=== PATIENT | male | born 1965 | race Caucasian/White ===

== ENCOUNTER 2025-03-11 11:08 | Outpatient (AMB) | payer OTHER, SELFPAY ==
--- NOTE | 2025-03-11 11:10 | A.OFFVIS_ITS ---
Vital Signs 03/11/25 11:14 03/11/25 11:16 Height 5 ft 6 in Weight 274 lb 6 oz BMI 44.3 BP 183/100 H 196/99 H Blood Pressure Location Lt brachial Rt radial Position Sitting Sitting Pulse 100 Pulse Source Pulse Oximeter Pulse Oximetry (%) 98 Oxygen Delivery Method Room Air Comment bp recheck Intake Visit Reasons: LEFT SIDED LOW BACK PAIN Intake Note: Pain today 710 Allergies No Known Allergies Allergy (Verified 03/11/25 11:14) HPI Comments Details: The patient is a 59-year-old male presenting with chronic back pain. The patient reports a history of multiple surgeries, including a total knee replacement and bilateral shoulder replacements. He also has a history of spinal surgery involving plates and screws, and a neck fusion performed approximately three years ago. The back pain has been persistent and is described as worsening over time, with a current severity of 7 to 8 out of 10. The pain is exacerbated by movements, prolonged sitting, walking and cold weather, and is present throughout the day. The patient finds some relief with medications such as oxycodone and heat application. The pain is described as gross ache and stabbing, particularly when sitting or attempting to stand after sitting for prolonged periods. The pain radiates from the lower back to the left knee but does not extend below the knee. Denies any recent trauma, injury or falls. Patient plans to start physical therapy soon at [facility]. The patient has a BMI of 44 and has been advised on weight management, including a potential referral to a general foundry worker. He reports consuming beer and marijuana, which he purchases from a medical dispensary. - Onset and Timing: Persistent pain worsening over time, present throughout the day - Quality and Character: Described as gross and stabbing, particularly when sitting or standing, prolonged walking - Primary Location: Lower back, bilateral knees L>R, left shoulder, my body hurts - Radiation: Radiates to the left knee, not extending below the knee - Exacerbating Factors: Movement, cold, prolonged sitting or walking - Relieving Factors: Medications (oxycodone), heat application - Interference: Affects ability to sit or stand, walking for prolonged periods - Affect: Pain impacts daily activities and mood, causing frustration - Analgesia: Current pain level is 7 to 8/10, managed with oxycodone and heat - Adverse Effects: No specific adverse effects from medications reported - Activities of Daily Living: Pain interferes with cleaning, cooking, and other household activities - Aberrant Drug Related Behaviors: No aberrant behaviors reported, patient stopped oxycodone use in September [facility] Medical History (Updated 03/14/25 @ 20:06 by OCHOA Reed) Chronic anemia Chronic combined systolic (congestive) and diastolic (congestive) heart failure Cervical radiculopathy Chronic pain of both shoulders Marijuana use Rotator cuff arthropathy of left shoulder Hyperlipidemia Acute left-sided low back pain Hypertension Cardiomyopathy Bipolar 1 disorder Bilateral chronic knee pain Benign prostatic hyperplasia with lower urinary tract symptoms Alcoholic liver disease Surgical History (Updated 03/14/25 @ 20:03 by OCHOA Reed) H/O shoulder surgery History of bilateral knee replacement Social History Alcohol intake: current Alcohol intake frequency: a few times a week Alcohol type: beer Patient Tobacco Use Status: Former Tobacco user Substance Use Type: Marijuana Review of Systems Const Details: - Musculoskeletal: Reports chronic back pain, radiating to left knee, exacerbated by movement and cold - Neurological: Denies numbness or tingling, bladder or bowel dysfunction or saddle anesthesia - Psychiatric: Reports frustration due to pain and challenges to obtain opioids - Gastrointestinal: Denies any specific symptoms All systems reviewed & are unremarkable except as noted in HPI and below Physical Exam Vital Signs: Last Vital Signs Pulse 100 03/11/25 11:14 BP 196/99 H 03/11/25 11:16 Pulse Ox 98 03/11/25 11:14 Oxygen Delivery Method Room Air 03/11/25 11:14 BMI result Body Mass Index 44.3 General: Appears afebrile. Morbidly obese. Alert and oriented. Mood and affect appropriate. Follows and participates in conversation appropriately. Respiratory effort is unlabored. No cough. Able to transition from sit to stand unassisted. Ambulates with bilaterally normal heel strike and toe off. General: Yes no CVA tenderness Back/Spine/Pelvis Other: Limited lumbar ROM due to pain. Lumbar flexion and extension reproduces moderate pain. No midline tenderness in cervical, thoracic or lumbar regions. Anoc-bi-vgdytbpy difficulty with getting up from sitting to standing position due to back and left knee pain. Demonstrates 5/5 right and 4/5 left due to pain strength of quadriceps bilaterally as well as flexion/dorsiflexion of bilateral feet against resistance. 2+ pedal pulses bilaterally. Straight leg rise with dorsiflexion negative bilaterally. +1 patellar and achilles reflexes bilaterally. Facet loading test positive bilaterally. Elmer?s, and Stinchfield tests are negative bilaterally. No groin pain with I/E hip rotations. Valsalva maneuver negative. Back: no CVA tenderness Cervical Spine: cervical muscular tenderness, Cervical spine scars present and No Cervical spine tenderness Thoracic/Lumbar Spine: thoracic and lumbar spine normal to inspection, No Thoracic/lumbar spine scar(s), Lasegue's sign negative, straight leg raise negative bilaterally, pain with thoraco-lumbar ROM, paraspinal muscle tenderness, thoraco-lumbar ROM limited, No thoracic spinal tenderness and No lumbar spinal tenderness Sacroiliac joints: bilaterally nontender Extrem General: Yes capillary refill normal, Yes no clubbing, cyanosis or edema and Yes no calf tenderness Left lower extremity: knee (well healed incision) Details: normal to inspection, tenderness Location: of the patella, of the medial joint line and of the lateral joint line and crepitus; no ecchymosis, no deformity and no unusual warmth Results Reviewed Results Reviewed: No imaging reports are available for review. Assessment & Plan Assessment & Plan (1) Morbid obesity with body mass index (BMI) of 45.0 to 49.9 in adult: Code(s): E66.01 - Morbid (severe) obesity due to excess calories; Z68.42 - Body mass index [BMI] 45.0-49.9, adult (2) Lumbosacral spondylosis: Code(s): M47.817 - Spondylosis without myelopathy or radiculopathy, lumbosacral region Category: Medical (3) Bilateral chronic knee pain: Code(s): M25.561 - Pain in right knee; M25.562 - Pain in left knee; G89.29 - Other chronic pain Category: Medical (4) Acute left-sided low back pain: Code(s): M54.50 - Low back pain, unspecified Category: Medical (5) Lumbar radiculopathy: Code(s): M54.16 - Radiculopathy, lumbar region Category: Medical Plan The plan for managing the patient's chronic back and knee pain includes initiating physical therapy for six to eight weeks to improve flexibility, ROM, core strength and mobility. Following the completion of physical therapy, an MRI may be considered to further evaluate the condition of the spine for radicular symptoms and axial low back pain due to arthritis. Medical release request sent to [facility] for most recent spine and joint imaging for review. Discussed interventional procedures for radicular and facet mediated low back pain and chronic knee pain with h/o total knee replacements such as diagnostic versus therapeutic injections, lumbar and genicular radiofrequency ablation, peripheral nerve stimulation or spinal cord stimulation. I have informed patient that we do not offer chronic opioid program at this time. Additionally, the patient has been advised on weight management strategies, including a referral to a Verification Rep, to address obesity and its impact on back pain. All questions and concerns have been answered and patient agreed with the treatment plan. Follow up after PT and sooner as needed. Patient was informed and verbally consented to the use of an ambient scribe for clinic note documentation during this visit. Orders: Referrals Medical Nutrition Therapy Referral E66.01 - Morbid (severe) obesity due to excess calories, G89.29 - Other chronic pain, M54.50 - Low back pain, unspecified, Z68.42 - Body mass index [BMI] 45.0-49.9, adult Coding Level of Care Code New Pt Level 4 (21565) Diagnoses Morbid obesity with body mass index (BMI) of 45.0 to 49.9 in adult E66.01; Z68.42 Lumbosacral spondylosis M47.817 Bilateral chronic knee pain M25.561; M25.562; G89.29 Acute left-sided low back pain M54.50 Lumbar radiculopathy M54.16
[2025-03-11 11:14] VITALS: BP 183/100; PULSE 100; O2SAT 98; BMI 44.3
[2025-03-11 11:16] VITALS: BP 196/99
--- OUTSIDE RECORDS SUMMARY | 2025-03-11 14:00 | XMS_ITS | Encounter Summary ---
Author Organization [facility] Address [address] [place] [address] Care Team Providers Care Chute Builder Name Role Phone Cristo Gonazles MD Primary Care Provider [phone] Encounter Details Date Type Department Care Team (Late Contact Info) Description 02/05/2025 Results Follow-Up Adult Medicine [address] [phone] Cristo Gonzales MD [address] [place] [address] Social History Tobacco Use Types Packs/Day Years Used Date Smoking Tobacco: Former Cigarettes Smokeless Tobacco: Never Alcohol Use Standard Drinks/Week Comments Yes 6 (1 standard drink = 0.6 oz pur e alcohol) Interpersonal Safety Answer Date Record ed Physical Abuse Unrecognized value 10/14/2024 Verbal Abuse Unrecognized value 10/14/2024 Sex and Gender Information Value Date Recorded Sex Assigned at Male 08/25/2024 11:15 AM EDT Legal Sex Male 4:31 PM EST Gender Identity Male 08/25/2024 11:15 AM EDT Sexual Orientation Straight 08/25/2024 11 :15 AM EDT documented as of this encounter Plan of Treatment Upcoming Encounters Date Type Department Care Team (Late st Contact Info) Description 04/14/2025 9:30 AM EST Office Visit Orthopedic Surgery - [place] [address] [facility] [address] [place] [address] Erik Tan MD [address] [facility] [address] [place] [address] 06/08/2025 11:15 AM EST Office Visit Adult Medicine [facility] [address] [place] [address] Cristo Gonzales MD [address] [place] [address] documented as of this encounter Visit Diagnoses Not on filedocumented in this encounter Care Teams Chute Builder Relationship Specialty Start Date End Date Cristo Gonzales MD [address] [place] [address] PCP - General Internal Medicine 09/22/21 documented as of this encounter
--- OUTSIDE RECORDS SUMMARY | 2025-03-11 14:00 | XMS_ITS | Clinical Summary ---
Author Organization [facility] [employer] [facility] Address [address] [facility] [place] [address] Phone Care Team Providers [employer] Head Cook Name Role Phone Cristo Gonzales MD Primary Care Provider [phone] Allergies No known active allergies Medications QUEtiapine (SEROquel) 50 mg tablet Take 1 Tab by mouth every 12 hours as needed for Other (anxiety). 04/13/20 20 Active cariprazine (Vraylar) 3 mg capsule TAKE 1 CAPSULE BY MOUTH AT BEDTIME 09/24/19 23 Active venlafaxine XR (EFFEXOR-XR) 150 mg 24 hr capsule Take 1 capsule by mouth daily. 07/13/19 22 Active traZODone (DESYREL) 100 mg tablet TAKE 1 TABLET BY MOUTH AT BEDTIME NEEDED FOR SLEEP 03/16/20 21 Active lamoTRIgine (LaMICtal) 200 mg tablet Take 200 mg by mouth daily. 06/10/19 21 Active QUEtiapine (SEROquel) 300 mg tablet Take 1 Tablet by mouth at bedtime. Active gabapentin (NEURONTIN) 600 mg tablet Take 1 Tab by mouth 3 times daily. 12/03/19 19 Active carvediloL (COREG) 3.125 mg tablet Take 2 tablets (6.25 mg total) by mouth 2 (two) times a day with meals. 10/07/19 25 Active aspirin 81 mg EC tablet Take 1 tablet (81 mg total) by mouth 2 (two) times a day. 56 tablet 10/16/19 25 Active folic acid (FOLVITE) 1 mg tablet Take 1 tablet by mouth once daily 90 tablet 1 11/03/19 25 Active furosemide (LASIX) 20 mg tablet Take 1 tablet by mouth once daily 90 tablet 1 11/03/19 25 Active atorvastatin (LIPITOR) 40 mg tablet Take 1 tablet by mouth once daily 90 tablet 1 12/31/19 25 Active tamsulosin (FLOMAX) 0.4 mg 24 hr capsule Take 1 capsule (0.4 mg total) by mouth 1 (one) time each day. at bedtime 90 each 1 01/07/20 25 Active lisinopril-hyd roCHLOROthiazi de (PRINZIDE,ZEST ORETIC) 20-12.5 mg per tablet Take 1 tablet by mouth 1 (one) time each day. 90 each 1 01/07/20 25 Active cyclobenzaprin e (FLEXERIL) 5 mg tabletIndicati ons:Acute left-sided low back pain with left-sided sciatica Take 1 tablet (5 mg total) by mouth at bedtime as needed for muscle spasms. 30 tablet 3 02/06/20 25 Active acetaminophen (Tylenol 8 Hour) 650 mg 8 hr tablet Take 1 tablet (650 mg total) by mouth every 8 (eight) hours if needed for mild pain. Do not crush, chew, or split. 90 tablet 2 02/06/20 25 Active predniSONE (DELTASONE) 20 mg tablet Take 2 tablets (40 mg total) by mouth See administration instructions for 3 days, THEN 1 tablet (20 mg total) See administration instructions for 4 days. 10 tablet 02/06/20 25 025 Active Problems Problem Noted Date Diagnosed Date Benign prostatic hyperplasia without lower urinary tract symptoms 11/01/2024 Bipolar 1 disorder (CMS/HCC V24, CMS/HCC V28) Periprosthetic fracture arou nd internal prosthetic left shoulder joint, initial encounter 10/13/2024 Pre-op exam 10/08/2024 Assessment & Plan (10/08/2024 3:32 PM EDT): No further cardiac testing indicated prior to planned orthopedic surgery. Orders: ECG 12 lead Periprosthetic fracture arou nd internal prosthetic left shoulder joint 09/14/2024 Morbid obesity with BMI of 4 0.0-44.9, adult ([facility] V24, [facility] V28) 03/30/2024 Coronary artery disease stat us post coronary stent insertion 11/07/2023 Overview (07/27/2024): - Cardiac catheterization 08/2023 showed proximal LAD 80% stenosis (bifurcation lesion) receiving a drug-eluting stent, D1 ostial 50% (IFR negative), left circumflex distal 50% (bifurcation lesion), and distal RCA mid subsection 60% stenosis (IFR negative) - GDMT for 6 months following PCI (02/2024) Assessment & Plan (10/08/2024 3:32 PM EDT): No recurrent anginal symptoms. Continue ongoing medical therapy for his CAD including aspirin, beta-karoline, statin. Brilinta previously discontinued; now >12 months s/p PCI. 12 lead ECG today remains normal. Assessment & Plan (07/27/2024 3:17 PM EDT): The patient does not have any anginal symptoms to his current MET workload. Continue ongoing medical therapy for his CAD including aspirin, beta-karoline, statin. He will notify me of any changes in his current condition Marijuana use 08/09/2023 Overview (03/30/2024): Last Assessment & Plan: Cessation advised. Cardiomyopathy ([facility] V24, [facility] V28) 2023 Overview (07/27/2024): - Echocardiogram in workup of questionable syncopal episodes on 01/30/2023 showed normal wall thickness, normal LV cavity size, mild, global LV systolic dysfunction with ejection fraction 45 to 50%, no hemodynamically significant valve disease, mild left atrial enlargement, grossly normal RV size and systolic function - Updated echo following revascularization in 02/21/2024 shows normalization of his LVEF 55 to 60%, normal LV chamber size, mild concentric LVH, no wall motion abnormalities, no hemodynamically significant valve disease Assessment & Plan (10/08/2024 3:32 PM EDT): Normalization of LVEF after coronary revascularizaion. Remains on low dose diuretic which he is doing well with. Continue medical therapy including beta karoline and ACEi Assessment & Plan (07/27/2024 3:17 PM EDT): The patient's LVEF has improved status post revascularization. He feels well and appears euvolemic on exam today. Continue medical therapy with beta-karoline and LANDON inhibitor. He does remain on diuretic and appears euvolemic. Chronic systolic congestive heart failure ([facility] V24, [facility] V28) 04/01/2023 Rotator cuff arthropathy, left 04/01/2023 Chronic anemia 11/06/2022 Alcoholic liver disease ([facility] V24) 11/06/2022 Ventricular trigeminy 10/23/2022 Overview (03/30/2024): Last Assessment & Plan: Likely an incidental issue. Patient is asymptomatic. Continue low-dose carvedilol. Cervical radiculopathy at C5 06/01/2021 Overview (03/30/2024): Last Assessment & Plan: Patient is almost 1 month s/p C4-5 anterior discectomy and fusion. He states the surgery has helped his preop symptoms, he notes his strength is returning. He states the muscles are atrophied and now he sees that he is building up muscle, strength. He is doing PT exercises. He still will have some posterior neck pain and occasionally use oxycodone, states he is out of meds. He has some residual voice hoarseness and occasional swallow issues, but feels it is getting better with time. He denies fever, sweats chills, recent wound drainage. He did relate that 2 days after surgery he had serosanguinous drainage x1. He is active and ambulating regularly, using a cane, has other chronic pain issues affecting his walking as well. He is on gabapentin for chronic low back issues. Med rec list reviewed. Patient will follow up with Dr. Park in 6 weeks with C-spine x-rays. If he has persistent issues with hoarseness and swallow that is not continuing to improve with time, I asked him to call and we can schedule ENT follow-up. I gave him a refill of oxycodone #20 tabs, explained this will likely be his last refill, he should not need narcotics for postop pain after the next few weeks. All questions answered. JOSAFAT on CPAP 07/13/2020 Overview (03/30/2024): [facility] Polysomnogram PAP treatment study. Date 09/14/2020. Wt 226#; BMI 36; SE 54 % SM 59 %; spent 0 % of the study in REM. On BiPAP @ ; RDI 9.9 (AHI 9.9), Central apneas 3; Obstructive apneas 2; Mixed apneas 2; hypopneas 10; RERAs 0; and, average oxygen saturation was 96%. For the entire study, PLMs ~2. Last Assessment & Plan: The patient reports continued compliance with CPAP. Mixed hyperlipidemia 06/22/2013 Assessment & Plan (10/08/2024 3:32 PM EDT): Lipids well controlled on atorvastatin 40mg daily. Recent LDL at goal <70 Assessment & Plan (07/27/2024 3:19 PM EDT): Patient's lipid profile somewhat outdated. He does have a lipid panel ordered pending from his PCP. Unfortunately, we are coffee with milk and sugar again today and therefore cannot get his lipid profile done today. He will get this done at his convenience at the [facility] lab in [place]. Syncope 06/22/2013 Overview (03/30/2024): - Vaguely described ongoing episodes that may be increasing in frequency recently - Sound orthostatic or vasovagal in nature but I was unable to do orthostatic vital signs on visit on 10/24/2022 due to the patient's need to get his ride after the appointment -In retrospect, likely a side effect of one of his psychiatric medications as his symptoms completely resolved with discontinuation of this medication-he does not remember the name of it - In workup from a cardiac standpoint we did a 30-day R OCT between October and November 2022-there were no sustained arrhythmias but frequent premature ventricular ectopic beats comprising an overall burden of 5% during the monitoring period. 19 patient triggered symptomatic events correlated to sinus rhythm with ventricular ectopy and some form Last Assessment & Plan: In retrospect likely a side effect to medication, no recurrence, reassuring cardiac workup overall. Bilateral chronic knee pain 11/15/2012 Chronic pain of both shoulders 11/15/2012 Primary hypertension 11/05/2005 Assessment & Plan (10/08/2024 3:32 PM EDT): Blood pressure is elevated in the office today 130/90. The patient feels this is not usual for him as he checks his Bps at home and it is usually controlled. He tells me he just had 2 caffeinated coffees prior to arrival and feels his shoulder pain may be a contributing factor which I agree with. Recommend close monitoring for now. Assessment & Plan (07/27/2024 3:18 PM EDT): The patient's heart rate is somewhat robust in office today, but better controlled on chart review. Continue medical therapy with beta-karoline, diuretic and LANDON inhibitor. If needed, could increase his beta-karoline as first medication change given his known PVCs. Resolved Problems Problem Noted Date Diagnosed Date Resolved Date Abnormal stress test 08/09/2023 025 Overview (03/30/2024): Last Assessment & Plan: Stress test results are consistent with coronary artery disease for which he will undergo cardiac catheterization further evaluation as noted above. Continue cardioprotective medical therapies including beta-blockade, statin therapy, and daily ASA. Encounters Date Type Department Care Team Description 02/22/2025 Telephone Adult Medicine [address] [phone] Cristo Gonzales MD 02/16/2025 9:30 AM EDT Treatment [facility] [address] [phone] Mi Obregon, PT Periprosthetic fracture around internal prosthetic left shoulder joint, subsequent encounter (Primary Dx) 02/09/2025 9:30 AM EDT Treatment [facility] [address] [phone] Mi Obregon, PT Periprosthetic fracture around internal prosthetic left shoulder joint, subsequent encounter (Primary Dx) 02/05/2025 1:40 PM EDT - 02/05/2025 11:59 PM EDT Hospital Encounter [address] [phone] Acute left-sided low back pain with left-sided sciatica Discharge Disposition: Home or Self Care 02/05/2025 1:30 PM EDT Office Visit [address] [phone] Cristo Gonzales MD Primary hypertension (Primary Dx); Acute left-sided low back pain with left-sided sciatica 02/05/2025 Results Follow-Up [address] [phone] Cristo Gonzales MD 01/26/2025 9:00 AM EDT Treatment [address] [phone] 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 Periprosthetic fracture around internal prosthetic left shoulder joint, subsequent encounter (Primary Dx); Status post revision of total replacement of right knee 01/13/2025 11:30 AM EDT Office Visit Orthopedic Surgery [facility] [address] [phone] Cori Vergara PA S/P shoulder hemiarthroplasty, left (Primary Dx); Periprosthetic fracture around internal prosthetic left shoulder joint, sequela 01/12/2025 9:30 AM EDT Treatment [address] [phone] Mi Obregon, PT Periprosthetic fracture around internal prosthetic left shoulder joint, subsequent encounter (Primary Dx) 01/06/2025 2:00 PM EDT Office Visit Adult [address] [place] [address] Cristo Gonzales MD Poorly-controlled hypertension (Primary Dx); Coronary artery disease status post coronary stent insertion; Chronic systolic congestive heart failure ([facility] V24, [facility] V28); Mixed hyperlipidemia; JOSAFAT on CPAP; Postoperative anemia; Benign prostatic hyperplasia without lower urinary tract symptoms; Bipolar 1 disorder ([facility] V24, [facility] V28) 12/23/2024 Telephone Orthopedic Surgery [facility] 160 175 [facility] [address] [place] [address] Erik Tan MD 12/22/2024 9:30 AM EDT Treatment [facility] 175 [facility] [address] [place] [address] Mi Obregon, PT Periprosthetic fracture around internal prosthetic left shoulder joint, subsequent encounter (Primary Dx) from Last 3 Months Immunizations Immunization Administration Dates Next Due Influenza Quadravalent, MDCK , 0.5ml, preservative free (Flucelvax) 6mo and older 02/06/2023,04/10/2022,03/25/2020,2019 Influenza Quadravalent, MDCK , 0.5ml, with preservative (Flucelvax) 6mo and older 04/09/2017 Influenza Quadrivalent, 0.5m l, preservative free (Fluarix; FluLaval; Fluzone) ages 6mo and older (Afluria) 3yo and older 03/06/2021 Influenza trivalent, recombi nant, 0.5mL, preservative free (Flublok) 9yo and older 02/25/2024 Tdap Tetanus diptheria acell ular pertussis (Boostrix; Adacel) 7yo and older 09/04/2015,02/14/2015 Zoster recombinant (Shingrix ) 19yo and older 06/25/2021,03/06/2021 Surgical History Surgery Date Site/Laterality Comments OTHER SURGICAL HISTORY PROCEDURE: [place] ANES VEINS OF UPPER LEG INCLUDING EXPLORATION OTHER SURGICAL HISTORY PROCEDURE: NH ANESTHESIA VEINS OF LOWER LEG NOS TOTAL KNEE ARTHROPLASTY 07/01 Left, 08/02 Right PROCEDURE: NH ARTHRP KNE CONDYLE&PLATU MEDIAL&LAT COMPARTMENTS; COMMENT: bilateral VARICOSE VEIN SURGERY PROCEDURE: NH LIGJ DIVJ &/EXCJ VARICOSE VEIN CLUSTER 1 LEG COLONOSCOPY W/ POLYPECTOMY 08/19/2017 PROCEDURE: NH COLSC FLX W/RMVL OF TUMOR POLYP LESION SNARE TQ; COMMENT: Two large adenomas; repeat in 2 years under propofol OTHER SURGICAL HISTORY 07/14/2021 PROCEDURE: NH ARTHRD ANT INTERBODY MIN DSC CRV BELOW C2; COMMENT: C4-5 anterior discectomy and fusion SHOULDER SURGERY 04/16/2023 Left PROCEDURE: HISTORICAL SHOULDER SURGERY; COMMENT: Reverse total shoulder arthroplasty REVERSE TOTAL SHOULDER ARTHROPLASTY 10/13/2024 Left Medical History Medical History Date Comments Unspecified essential hypertension DX:Unspecified essential hypertension Pure hypercholesterolemia DX:Pur e hypercholesterolemia Anxiety state, unspecified DX:An xiety state, unspecified Obesity, unspecified 11/05/2005 DX:Obesity, unspecified Varicose veins of lower extr emities with inflammation 01/02/2006 DX:Varicose veins of lower extremities with inflammation Bipolar I disorder, most rec ent episode (or current) unspecified 09/26/2006 DX:Bipolar I disorder , most recent episode (or current) unspecified Tobacco use disorder 09/26/2006 DX:Tobacco use disorder Alcohol abuse, unspecified 09/26/2006 DX:Al cohol abuse, unspecified Other and unspecified alcoho l dependence, unspecified drinking behavior 02/13/2007 DX:Other and unspecified alc ohol dependence, unspecified drinking behavior Carpal tunnel syndrome on right 03/06/2021 DX:Carpal tunnel syndrome on right; COMMENT: NCS study 03/03/2021 Ulnar neuropathy at elbow, right 03/06/2021 DX:Ulnar neuropathy at elbow, right; COMMENT: NCS 03/03/2021 Heart disease Sleep apnea CAD (coronary artery disease) Anemia Family History Medical History Relation Name Comments Diabetes Brother 1 Christopher Other: unknown heart condition Brother 1 Rodríguez r Diabetes Father Heart attack Mother Stroke Mother Coronary artery disease Neg Hx Other cancer Neg Hx Relation Name Status Comments Brother 1 Christopher Brother 2 Alive Brother 3 Alive Father (Age 50's) Maternal Grandfather Maternal Grandmother Mother (Age 50's) Paternal Grandfather Paternal Grandmother Sister 1 Alive Sister 2 Alive Social History Tobacco Use Types Packs/Day Years Used Date Smoking Tobacco: Former Cigarettes Smokeless Tobacco: Never Tobacco Cessation:Counseling Given: Not Answered Alcohol Use Standard Drinks/Week Comments Yes 6 [...] Orientation Straight 08/25/2024 11 :15 AM EDT Obstetrics History Last Filed Vital Signs Vital Sign Reading Time Taken Comments Blood Pressure 135/83 02/05/2025 1:11 PM EDT Pulse 84 02/05/2025 1:11 PM EDT Temperature 36.1 C (97 F) 02/05/2025 1:11 PM EDT Respiratory Rate 18 10/15/2024 8:07 AM EDT Oxygen Saturation 95% 10/15/2024 8:07 AM EDT Inhaled Oxygen Concentration - - Weight 120 kg (265 lb) 02/05/2025 1:11 PM EDT Height 167.6 cm (5' 6 ) 02/05/2025 1:11 PM EDT Body Mass Index 42.77 02/05/2025 1:11 PM EDT Plan of Treatment Upcoming Encounters Date Type Department Care Team (Late st Contact Info) Description 04/14/2025 9:30 AM EST Office Visit Orthopedic Surgery [facility] [address] [phone] Erik Tan MD [address] [phone] 06/08/2025 11:15 AM EST Office Visit Adult Medicine [address] [phone] Cristo Gonzales MD [address] [place] [address] Health Maintenance Due Date Last Done Comments Pneumococcal Vaccine: 50+ Years (1 of 2 - PCV) 1983 RSV Immunization Adult Patients (1 - Risk 50-74 years 1-dose series) 2014 HIV Screening 04/06/2022 Medicare Annual Wellness Visit 04/06/2022 Social Influencers of Health Screening 04/06/2022 Depression Screening 04/29/2024 10/01/2023 COVID-19 Vaccine ( - season) 2024 02/25/2024, 06/13/2021, 10/04/2020, Additional history exists Influenza Vaccine (#1) 2024 , 02/06/2023, 04/10/2022, Additional history exists DTaP,Tdap,and Td Vaccines (3 - Td or Tdap) 09/03/2025 09/04/2015, 02/14/2015 Hypertension/CHF/CAD Annual BMP Blood Test 10/15/2025 10/15/2024, 10/14/2024, 09/30/2024, Additional history exists Colorectal Cancer Screening: Colonoscopy 06/26/2028 06/27/2023 Cholesterol Screening (Lipid Panel) 09/30/2029 09/30/2024, 02/06/2023 Zoster Vaccines Completed 06/25/2021, 03/06/2021 Hepatitis C Screening Completed 10/09/2022 HIB Vaccines Aged Out No longer eligi ble based on patient's age to complete this topic HPV Vaccines Aged Out No longer eligi ble based on patient's age to complete this topic Hepatitis A Vaccines Aged Out No long er eligible based on patient's age to complete this topic Hepatitis B Vaccines Aged Out No long er eligible based on patient's age to complete this topic IPV Vaccines Aged Out No longer eligi ble based on patient's age to complete this topic MMR Vaccines Aged Out No longer eligi ble based on patient's age to complete this topic Meningococcal ACWY Vaccine Aged Out N o longer eligible based on patient's age to complete this topic Meningococcal B Vaccine Aged Out No l onger eligible based on patient's age to complete this topic RSV Immunization Patients Under 20 months Aged Out No longer eligible based on patient's age to complete this topic Varicella Vaccines Aged Out No longer eligible based on patient's age to complete this topic Medical Devices Implanted Type 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 Device Identifier Shelf Expiration Date Model / Serial / Lot Supply Technician Hum Head Cntr Perform Ti - [id number] - [id number] Implanted:Qty : 1 on 10/13/2024 by Erik Tan MD at [facility] Joints Shoulder Left: Shoulder [employer] [id number] 05/09/2028 [id number] / [id number] / N/A Bone Chip Spine 4-10mm 30ml Canc - Sn/A - [id number] Implanted:Qty : 1 on 10/13/2024 by Erik Tan MD at [facility] [employer] Left: Shoulder [employer] 08/19/2028 [id number] / N/A / [id number] Humeral Head Implanted:Qty : 1 on 10/13/2024 by Erik Tan MD at [facility] Left: Shoulder [employer] 05/09/2028 [id number] / [id number] / N/A Procedures Procedure Name Priority Date/Time Associated Diagnosis Comments XR LUMBAR SPINE 4+ VIEWS Routine 02/05/2025 1:48 PM EDT Acute left-sided low back pain with left-sided sciatica CBC WITH AUTO DIFFERENTIAL Routine 01/06/2025 1:56 PM EDT Postoperative anemia CBC AND DIFFERENTIAL Routine 01/06/2025 1:56 PM EDT Postoperative anemia IRON AND TIBC Routine 01/06/2025 1:56 PM EDT Postoperative anemia FERRITIN Routine 01/06/2025 1:56 PM EDT Postoperative anemia BASIC METABOLIC PANEL Routine 10/15/2024 5:54 AM EDT LIPID PANEL WITH REFLEX TO DIRECT LDL Routine 09/30/2024 10:26 AM EDT Primary hypertension CAD S/P percutaneous coronary angioplasty Chronic systolic congestive heart failure (CMS/HCC V24, CMS/HCC V28) JOSAFAT on CPAP Mixed hyperlipidemia HM DEPRESSION SCREENING Routine 10/01/2023 COLONOSCOPY Routine 06/27/2023 HEPATITIS C SCREENING Routine 10/09/2022 from Last 3 Months or Most Recently Relevant to Health Maintenance Results * XR Lumbar Spine 4+ Views (02/05/2025 1:48 PM EDT) Anatomical Region Laterality Modality Spine, L-spine Radiographic Angelica ging 02/05/2025 4:02 PM EDT Impressions 02/05/2025 4:05 PM EDT No acute fracture or dislocation. Severe degenerative changes of the lumbar spine. -------- FINAL REPORT -------- Dictated By: Main Bethea Dictated Date: 02/05/2025 16:02 ET Assigned Physician: Main Bethea Reviewed and Electronically Signed By: Main Bethea Signed Date: 02/05/2025 16:05 ET Workstation ID: [id number] Transcribed By: Self Edit Transcribed Date: 02/05/2025 16:02 ET Narrative 02/05/2025 4:05 PM EDT HISTORY: Low backache TECHNIQUE: 4 views of the lumbar spine COMPARISON: None FINDINGS: Vertebral body height is grossly maintained. Decreased disc height at multiple levels with endplate sclerosis. Moderate-sized anterior osteophytes are present. There is grade 1 retrolisthesis of L1 on L2, L2 on L3 and L4 on L5. Moderate-sized anterior osteophytes are present. Moderate facet arthropathy of the lower lumbar spine. There is moderate neuroforaminal stenosis at multiple levels. Large amount stool throughout the colon. The sacroiliac joints are patent. Procedure Note Main Bethea MD - 02/05/2025 HISTORY: Low backache TECHNIQUE: 4 views of the lumbar spine COMPARISON: None FINDINGS: Vertebral body height is grossly maintained. Decreased disc height atmultiple levels with endplate sclerosis. Moderate-sized anteriorosteophytes are present. There is grade 1 retrolisthesis of L1 on L2, L2on L3 and L4 on L5. Moderate-sized anterior osteophytes are present.Moderate facet arthropathy of the lower lumbar spine. There is moderateneuroforaminal stenosis at multiple levels. Large amount stool throughoutthe colon. The sacroiliac joints are patent. IMPRESSION: No acute fracture or dislocation. Severe degenerative changes of thelumbar spine. -------- FINAL REPORT -------- Dictated By: Main Bethea Dictated Date: 02/05/2025 16:02 ET Assigned Physician: Main Bethea Reviewed and Electronically Signed By: Main Bethea Signed Date: 02/05/2025 16:05 ET Workstation ID: [id number] Transcribed By: Self Edit Transcribed Date: 02/05/2025 16:02 ET us Cristo Gonzales MD IMG XR PROCEDURES Final Res ult * (ABNORMAL) CBC auto differential (01/06/2025 1:56 PM EDT) WBC 6.9 4.8 - 10.8 K/mcL LAB HEMETOLOGY METHOD 01/06/2025 4:51 PM EDT [facility] RBC 4.10(L) 4.50 - 5.50 M/mcL LAB HEMETOLOGY METHOD 01/06/2025 4:51 PM EDT [facility] Hemoglobin 12.1(L) 13.5 - 17.5 g/dL LAB HEMETOLOGY METHOD [facility] Hematocrit 38.0(L) 42.0 - 54.0 % LAB HEMETOLOGY METHOD 01/06/2025 4:51 PM EDT [facility] MCV 93.1 79.0 - 98.0 FL LAB HEMETOLOGY METHOD 01/06/2025 4:51 PM EDT [facility] MCH 29.7 27.0 - 32.0 pcg LAB HEMETOLOGY METHOD 01/06/2025 4:51 PM [facility] MCHC 31.8(L) 32.0 - 37.0 g/dL LAB HEMETOLOGY METHOD 01/06/2025 4:51 PM EDT [facility] RDW 13.5 11.0 - 15.0 % LAB HEMETOLOGY METHOD 01/06[facility]2025 4:[facility] Platelets 166 130 - 400 K/mcL LAB HEMETOLOGY METHOD 01/06/2025 4:51 PM [facility] MPV 10.2 7.0 - 11.0 FL LAB HEMETOLOGY METHOD 01/06/2025 4:51 PM EDT [facility] NRBC 0.0 <1.0 % LAB HEMETOLOGY METHOD 01/06/2025 4:51 [facility] NRBC Absolute 0.00 <0.10 K/mcL LAB HEMETOLOGY METHOD 01/06/2025 4:51 PM [facility] Neutrophils Relative 63.7 % LAB HEMETOLOGY METHOD 01/06/2025 4:51 PM [facility] Lymphocytes Relative 21.2 % LAB HEMETOLOGY METHOD 01/06/2025 4:51 PM [facility] Monocytes Relative 11.2 % LAB HEMETOLOGY METHOD 01/06/2025 4:51 PM [facility] Eosinophils Relative 3.2 % LAB HEMETOLOGY METHOD 01/06/2025 4:51 PM [facility] Basophils Relative 0.4 % LAB HEMETOLOGY METHOD 01/06/2025 4:51 PM [facility] Immature Granulocytes Relative 0.3 % LAB HEMETOLOGY METHOD 01/06/2025 4:51 PM [facility] Neutrophils Absolute 4.36 1.50 - 7.00 K/mcL LAB HEMETOLOGY METHOD 01/06/2025 4:51 PM [facility] Lymphocytes Absolute 1.45 1.00 - 5.00 K/mcL LAB HEMETOLOGY METHOD 01/06/2025 4:51 PM EDT [facility] Monocytes Absolute 0.77 0.20 - 1.00 K/[facility] LAB HEMETOLOGY METHOD 01/06/2025 4:51 PM EDT [facility] Eosinophils Absolute 0.22 0.00 - 0.50 K/[facility] LAB HEMETOLOGY METHOD 01/06/2025 4:51 PM EDT [facility] Basophils Absolute 0.03 0.00 - 0.20 K/[facility] LAB HEMETOLOGY METHOD 01/06/2025 4:51 PM EDT [facility] Immature Granulocytes Absolute 0.02 0.00 - 0.03 K/[facility] LAB HEMETOLOGY METHOD 01/06/2025 4:51 PM EDT [facility] Blood Venous blood specimen / Unknown Venipuncture / Unknown 01/06/2025 1:56 PM EDT 01/06/2025 1:56 PM EDT Cristo Gonzales MD LAB BLOOD ORDERABLES Final Result [facility] [address] [place] [address], * Iron and TIBC (01/06/2025 1:56 PM EDT) Iron 92 50 - 160 mcg/dL LAB CHEMISTRY METHOD 01/06/2025 5:19 PM EDT [facility] TIBC 350 250 - 450 mcg/dL LAB CHEMISTRY METHOD 01/06/2025 5:19 PM EDT [facility] Iron Saturation 26 20 - 50 % LAB CHEMISTRY METHOD 01/06/2025 5:19 PM EDT [facility] Blood Venous blood specimen / Unknown Venipuncture / Unknown 01/06/2025 1:56 PM EDT 01/06/2025 1:56 PM EDT Cristo Gonzales MD LAB BLOOD ORDERABLES Final Result [facility] [address] [place] [address], [place] [phone] * Ferritin (01/06/2025 1:56 PM EDT) Ferritin 49 26 - 388 ng/mL LAB CHEMISTRY METHOD 01/06/2025 5:19 PM EDT [facility] Blood Venous blood specimen / Unknown Venipuncture / Unknown 01/06/2025 1:56 PM EDT 01/06/2025 1:56 PM EDT Cristo Gonzales MD LAB BLOOD ORDERABLES Final Result Performing Organization Address [facility]/ZIP Co de Phone Number [facility] [address] [place] [address], [place] [phone] * (ABNORMAL) Basic metabolic panel (10/15/2024 5:54 AM EDT) Pathologist [facility] Sodium 141 133 - 145 mmol/L LAB CHEMISTRY METHOD 10/15/2024 8:06 AM [facility] Potassium 3.9 3.5 - 5.5 mmol/L LAB CHEMISTRY METHOD 10/15/2024 8:06 AM [facility] Chloride 108 96 - 110 mmol/L LAB CHEMISTRY METHOD 10/15/2024 8:06 AM [facility] CO2 26 21 - 32 mmol/L LAB CHEMISTRY METHOD 10/15/2024 8:06 AM [facility] Anion Gap 7 3 - 11 LAB CHEMISTRY METHOD 10/15/2024 8:06 AM [facility] Glucose 102(H) 70 - 100 mg/dL LAB CHEMISTRY METHOD 10/15/2024 8:06 AM [facility] BUN 13 5 - 25 mg/dL LAB CHEMISTRY METHOD 10/15/2024 8:06 AM T [facility] Creatinine 0.82 0.70 - 1.30 mg/dL LAB CHEMISTRY METHOD 10/15/2024 8:06 AM [facility] eGFR 101 >=60 mL/min/1. 73m2 LAB CHEMISTRY METHOD 10/15/2024 8:06 AM T [facility] Comment:Calculation based on the Chronic Kidney Disease Epidemiology Collaboration (CKD-EPI) equation refit without adjustment for race. BUN/Creatinine Ratio 15.9 LAB CHEMISTRY METHOD 10/15/2024 8:06 AM [facility] Calcium 8.4(L) 8.5 - 10.5 mg/dL LAB CHEMISTRY METHOD 10/15/2024 8:06 AM [facility] Blood Venous blood specimen / Unknown Venipuncture / Unknown 10/15/2024 5:54 AM EDT 10/15/2024 6:14 AM EDT us Yuliana GREEN LAB BLOOD ORDERABLES Final Resul t [facility] [address] [place] [address], * Lipid panel with reflex to direct LDL (09/30/2024 10:26 AM EDT) Cholesterol 161 0 - 200 mg/dL LAB CHEMISTRY METHOD 09/30/2024 1:08 PM T [facility] Triglycerides 146 0 - 150 mg/dL LAB CHEMISTRY METHOD 09/30/2024 1:08 PM [facility] HDL 69 >=40 mg/dL LAB CHEMISTRY METHOD 09/30/2024 1:08 PM [facility] LDL Calculated 63 0 - 100 mg/dL LAB CHEMISTRY METHOD 09/30/2024 1:08 PM [facility] VLDL Cholesterol Javier 29.2 mg/dL LAB CHEMISTRY METHOD 09/30/2024 1:08 PM EDT [facility] Non HDL Chol. (LDL+VLDL) 92 <145 mg/dL LAB CHEMISTRY METHOD 09/30/2024 1:08 PM EDT [facility] Chol/HDL Ratio 2.3 0.0 - 4.4 LAB CHEMISTRY METHOD 09/30/2024 1:08 PM EDT [facility] Blood Venous blood specimen / Unknown Venipuncture / Unknown 09/30/2024 10:26 AM EDT 09/30/2024 10:26 AM EDT Cristo Gonzales MD LAB BLOOD ORDERABLES Final Result [facility] [address] [place] [address], * Depression Screening (10/01/2023) Pathologist [facility] Depression Screening abstracted Historical Provider HEALTH MAINTENANCE Final Result * Colonoscopy (06/27/2023) [facility] Colonoscopy no interpretation , abstracted Anatomical Region Laterality Modality Other Historical Provider HEALTH MAINTENANCE Final Result * Hepatitis C Screening (10/09/2022) [facility] Hepatitis C Screening abstracted Historical Provider HEALTH MAINTENANCE Final Result from Last 3 Months or Most Recently Relevant to Health Maintenance Insurance [facility] MEDICARE Member Subscriber Plan / Payer (Ef fective 2019-Present) Name:RODRICK BARTON Relation to Subscriber:Self Name:Rodrick Barton Payer ID:[id number] Group ID:[id number] Type:Not on file Address: [address] [place] [address] Advance Directives Documents on File Type Date 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 Do not modify or discontinue any currently active code status orders. Healthcare Agents on File Name Relationship Healthcare Agent Relationship Communication Cori Barton Spouse Health Care Agent Lisa Lou Relative First Alternate Health Care Agent Care Teams [employer] Cafeteria Head Cook Relationship Specialty Start Date End Date Cristo Gonzales MD [address] [place] [address] PCP - General Internal Medicine 09/22/21
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
== END 2025-03-11 11:39 | disposition home or self-care (01) ==
PROVIDERS: PCP Internal Medicine; Visit Provider Nurse Practitioner Family
DX: E66.01 Morbid (severe) obesity due to excess calories (principal); Z68.42 Body mass index [BMI] 45.0-49.9, adult; M47.817 Spondylosis without myelopathy or radiculopathy, lumbosacral region; M25.561 Pain in right knee; M25.562 Pain in left knee; G89.29 Other chronic pain; M54.50 Low back pain, unspecified; M54.16 Radiculopathy, lumbar region
CPT/HCPCS: 99204

== ENCOUNTER → 2025-03-11 11:08 | Outpatient (BNVA) | payer OTHER, SELFPAY | PROVIDERS: PCP Internal Medicine; Visit Provider Nurse Practitioner Family | DX: E66.01 Morbid (severe) obesity due to excess calories (principal); Z68.42 Body mass index [BMI] 45.0-49.9, adult; M47.817 Spondylosis without myelopathy or radiculopathy, lumbosacral region; M25.561 Pain in right knee; M25.562 Pain in left knee; G89.29 Other chronic pain; M54.50 Low back pain, unspecified; M54.16 Radiculopathy, lumbar region | CPT/HCPCS: 99202 ==